=== PATIENT | male | born 1985 | race African-American/Black ===

== ENCOUNTER 2017-09-25 10:59 | Emergency (ER) | payer SELFPAY ==
[~2017-09-25] VITALS: Ht 175.3 cm; Wt 74.8 kg
--- NOTE | 2017-09-25 11:17 | NUR ---
DR SANTO AT THE BEDSIDE FOR EVAL AND EXAM.
[2017-09-25] MEDS ORDERED: MUCINEX PO (11:25)
[2017-09-25] MEDS ORDERED: NYQUIL PO (11:25)
[2017-09-25] MEDS ORDERED: IV NORMAL SALINE 1000 ML BAG IV ONE ×2 (11:30→12:30)
[2017-09-25] MEDS ORDERED: HYDROMORPHONE 1 MG/1 ML DISP.SYRIN IV ONE (11:30)
[2017-09-25] MEDS ORDERED: ONDANSETRON 4 MG/2 ML VIAL IV ONE (11:30)
--- NOTE | 2017-09-25 11:35 | NUR ---
PT OUT OF ER FOR CT.
[2017-09-25 11:44] LABS: BASOPHILS # (AUTO) 0.1 K/uL (0.0-8.0); HEMATOCRIT 47.4 % (40-50); HEMOGLOBIN 16.3 G/DL (14.0-18.0); LYMPHOCYTES # (AUTO) 0.9 K/UL (0.8-4.8); LYMPHOCYTES % (AUTO) 10.7 % (20.5-51.5); MEAN CORPUSCULAR HEMOGLOBIN 30.1 UUG (27.0-31.0); MEAN CORPUSCULAR HGB CONC 35 g/dL (32.0-37.0); MEAN CORPUSCULAR VOLUME 87.4 FL (82.0-92.0); MONOCYTES # (AUTO) 0.7 K/UL (0.1-1.30); MONOCYTES % (AUTO) 8.8 % (0.0-11.0); NEUTROPHILS # (AUTO) 6.5 K/UL (1.8-8.9); NEUTROPHILS % (AUTO) 79.5 % (38.5-71.5); PLATELET COUNT (AUTO) 125 K/UL (150-450); RED BLOOD CELL COUNT(AUTO) 5.42 MIL/UL (4.7-6.1); WHITE BLOOD COUNT (AUTO) 8.2 K/UL (4.0-11.2)
[2017-09-25] MEDS ORDERED: ONDANSETRON 4 MG/2 ML VIAL ONE (11:44)
[2017-09-25 11:53] LABS: CREATININE 1.7 mg/dL (0.6-1.3); POTASSIUM 3.8 mmol/L (3.5-5.1)
[2017-09-25 11:58] LABS: BILIRUBIN,DIRECT 0.2 mg/dL (0.0-0.2)
[2017-09-25] MEDS ORDERED: ACETAMINOPHEN 325 MG TABLET PO ONE (12:00)
[2017-09-25] MEDS ORDERED: ACETAMINOPHEN ES 500 MG TABLET ONE (12:14)
[2017-09-25 12:34] LABS: LYMPHOCYTES % (MANUAL) 12 % (20-40)
[2017-09-25 12:35] LABS: MONOCYTES % (MANUAL) 15 % (2-10); NEUTROPHILS % (MANUAL) 73 % (42-75)
--- NOTE | 2017-09-25 12:44 | NUR ---
Patient is resting comfortably in bed with eyes closed, NAD noted.
[2017-09-25 13:22] VITALS: BP 116/70
--- NOTE | 2017-09-25 13:22 | NUR ---
IV removed. Catheter intact and site benign. Pressure and 4x4 gauze applied to site. No bleeding noted.
--- NOTE | 2017-09-25 13:24 | NUR ---
Patient discharged to home in stable conditon. Written and verbal after care instructions given. Patient verbalizes understanding of instructions.
== END 2017-09-25 13:24 | disposition home or self-care (01) ==
LOC: ER 10:59
DX: K52.9 Noninfective gastroenteritis and colitis, unspecified (principal)
CPT/HCPCS: 36415; 83690; 85025; 85730; A4663; J2405; J7030